=== PATIENT | male | born 1980 | race Caucasian/White ===

== ENCOUNTER 2017-01-31 09:48 | Emergency (ER) | payer BC ==
[~2017-01-31] VITALS: Ht 177.8 cm; Wt 89.9 kg
[2017-01-31] MEDS ORDERED: PROCHLORPERAZINE 5 MG/ML, 2ML ONE (10:51)
[2017-01-31] MEDS ORDERED: DIPHENHYDRAMINE 50 MG/ML, 1ML ONE (10:51)
[2017-01-31] MEDS ORDERED: PROCHLORPERAZINE 5 MG/ML, 2ML IVPush ONE (11:00)
[2017-01-31] MEDS ORDERED: SODIUM CHLORIDE 0.9% 1,000ML IVBOLUS ONE (11:00)
[2017-01-31] MEDS ORDERED: DIPHENHYDRAMINE 50 MG/ML, 1ML IVPush ONE (11:00)
[2017-01-31] MEDS ORDERED: OMNIPAQUE 350 MG/ML, 100ML BOTTLE ONE (11:43)
[2017-01-31 12:04] LABS: BLOOD UREA NITROGEN 16 mg/dL (7-18)
[2017-01-31 12:34] VITALS: BP 142/91
== END 2017-01-31 12:36 | disposition home or self-care (01) ==
LOC: ED 11:57
DX: G44.209 Tension-type headache, unspecified, not intractable (principal); H53.8 Other visual disturbances
CPT/HCPCS: 36415; 70450; 70496; 80048; 82040; 85025; 96374; 96375; 99285; J0780; J1200; Q9967